=== PATIENT | male | born 1970 | race Caucasian/White ===

== ENCOUNTER → 2022-12-25 13:00 | Outpatient (CLI) | payer OTHER, SELFPAY ==
[2022-12-25 13:39] LABS: Add Manual Diff / Slide Review NO; Basophils Absolute Auto 100 /uL (0-100); Basophils Percent Auto 0.8 % (0-2); Eosinophils Absolute Auto 300 /uL (0-450); Eosinophils Percent Auto 4.4 % (2-4); Hematocrit 45.7 % (41-53); Hemoglobin 16.1 g/dL (13.5-17.5); Lymphocytes Absolute Auto 1900 /uL (1100-4500); Mean Corpuscular HGB Conc 35.3 % (30-36); Mean Corpuscular Hemoglobin 35.7 PG (26-34); Mean Corpuscular Volume 101.3 fL (80-100); Monocytes Absolute Auto 700 /uL (0-900); Monocytes Percent Auto 10.5 % (3-14); Neutrophils Absolute Auto 3800 /uL (1500-7000); Neutrophils Percent Auto 56.3 % (50-75); Platelet Count 226 X10^3/uL (150-400); Red Blood Cell Count 4.51 X10^6/uL (4.5-5.9); Red Cell Distribution Width 12.5 % (11.6-14.8); White Blood Cell Count 6.8 X10^3/uL (4.5-11.0)
[2022-12-25 13:49] LABS: Appearance Urine UA CLEAR; Bilirubin Urine UA NEGATIVE (NEGATIVE); Color Urine UA YELLOW; Glucose Urine UA NEGATIVE (Negative); Ketones Urine UA NEGATIVE (NEGATIVE); Leukocyte Esterase Urine UA NEGATIVE (NEGATIVE); Nitrite Urine UA NEGATIVE (Negative); Occult Blood Urine UA NEGATIVE (Negative); Protein Urine UA TRACE (Negative); Specific Gravity Urine UA 1.025 (1.000-1.035); Urobilinogen Urine UA 0.2 E.U./dL (0.2)
[2022-12-25 13:58] LABS: BUN Creatinine Ratio 14.3 (6-22); Blood Urea Nitrogen 8 mg/dL (9-20); Calcium 9.3 mg/dL (8.4-10.2); Carbon Dioxide 26 mmol/L (22-32); Chloride 99 mmol/L (98-107); Estimated Glomerular Filt Rate > 60 mL/min (>60); Glucose 100 mg/dL (70-100); HEMOLYSIS 16 (0-50); Potassium 3.6 mmol/L (3.4-5.1); Sodium 135 mmol/L (137-145)
[2022-12-26 08:35] LABS: Labcorp Hemoglobin (Hb) A1c 5.4 % (4.8-5.6)
== END ==
PROVIDERS: PCP Nurse Practitioner; Referring Provider Orthopaedic Surgery; Visit Provider Orthopaedic Surgery
DX: Z01.818 Encounter for other preprocedural examination (principal); Z01.812 Encounter for preprocedural laboratory examination; R73.9 Hyperglycemia, unspecified; N39.0 Urinary tract infection, site not specified
CPT/HCPCS: 36415; 80048; 81001; 83036; 85025; 93005

== ENCOUNTER 2023-02-06 06:29 | Inpatient (IN) | payer OTHER, SELFPAY ==
[2023-01-30 13:46] VITALS: BMI 26.2
[2023-02-06] VITALS (11 sets, daily range): BP systolic 110–149; BP diastolic 78–105; PULSE 72–98; RESP 11–18; TEMP 36.1–37.4; O2SAT 97–100; BMI 24.7
--- NOTE | 2023-02-06 | DI.RAD.S_ITS ---
PROCEDURE: XR HIP W PEL IF DONE LT 2V INDICATIONS: POST OP TECHNIQUE: AP pelvis and lateral view of the left hip acquired. COMPARISON: None. FINDINGS: Bones: Patient is status post left total hip arthroplasty, with hardware components in expected positions. The hip joint appears congruent. The visualized bony structures appear intact. Soft tissues: Overlying postoperative changes are noted. No suspicious soft tissue densities. IMPRESSION: Postop changes from left total hip arthroplasty with anatomic alignment. Dictated by: Dangelo Guillory M.D. on 02/06/2023 at 13:32 Approved by: Dangelo Guillory M.D. on 02/06/2023 at 13:32
--- NOTE | 2023-02-06 06:00 | DI.RAD.S_ITS ---
PROCEDURE: XR PELVIS 1-2V INDICATIONS: ISIDORO TECHNIQUE: 1 view(s) of the pelvis acquired. COMPARISON: None. FINDINGS: Bones: Left hip arthroplasty changes. Soft tissues: No suspicious calcifications. IMPRESSION: Single radiographic view showing the left hip arthroplasty with postoperative changes. Dictated by: Jono Gupta M.D. on 02/06/2023 at 11:59 Approved by: Jono Gupta M.D. on 02/06/2023 at 12:00
[2023-02-06] MEDS: VANCOMYCIN 1,000 MG/200 ML PIGGYBACK 200 MG IV (06:56)
[2023-02-06] MEDS: LACTATED RINGERS 1,000 ML 42 ML IV (07:02)
[2023-02-06] MEDS: PREGABALIN 75 MG CAPSULE PO (07:02)
[2023-02-06] MEDS: CELECOXIB 200 MG CAPSULE PO (07:02)
[2023-02-06] MEDS: ACETAMINOPHEN 325 MG TABLET 975 MG PO (07:02)
--- NOTE | 2023-02-06 07:34 | P.OP_ITS ---
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 He has a remote history of surgical fixation with screws for slipped capital femoral epiphysis when he was child. He notes that his hip is markedly worsened recently. Non-operative management has failed and the patient has requested total hip replacement. The risks, benefits and alternatives to surgery were discussed with the patient prior to proceeding. Risks discussed included, but were not limited to, failure to relieve pain, leg length discrepancy, dislocation, stiffness, infection, nerve damage, deep venous thrombosis, pulmonary embolism, stroke, coma, heart attack, permanent paralysis and , as well as the potential need for eventual revision of the prosthetic. Surgeon: Nguyen Trevizo Ip Litigation Associate: Morteza Enriquez Anesthesia Type: General Operative Notes Findings: Severe left hip osteoarthritis adequate stability, adequate bone Closure Type: primary Specimen(s): none sent Prosthetic devices, grafts, tissues, transplants, or devices: Trevizo and nephew Synergy size 16 high offset, neutral poly liner, multiple screws locking and some nonlocking, size 60 redapt cup, 36+ 0 Oxinium head Estimated Blood Loss (mL): 600 Blood products transfused: none Procedure in detail: The patient was seen in the pre-operative area, where the patient identified the left hip as the operative site and this was marked with my initials. The patient received pre-operative antibiotics and was taken to the operating room and placed on the operative table in the right lateral decubitus position after satisfactory anesthesia. He had a hip flexion contracture of about 32 gave degrees preoperatively and several cm of leg length discrepancy and shortening with a slight abductor rosenberg contracture. A clerical support specialist out was performed. The left leg was prepared from the ankle to the iliac crest with ChloroPrep in the usual fashion and draped through sterile drapes. A PA was used throughout the procedure and was essential for retraction and adequate positioning of the patient and leg in order to allow successful implantation of the components. The hip was approached through an approximately 24 cm incision centered over the greater trochanter and curving gently posteriorly as it went proximally. This was carried sharply to the fascia caron, which was divided and retracted with a self retaining retractor. The trochanteric bursa was excised with care being taken to avoid the sciatic nerve, which was identified and protected throughout the case. The short external rotators were incised and the capsulomuscular flap was raised and tagged for later repair. The hip was dislocated. He had marked deformity of his femoral head. The screws were not visible but there was marked osteoarthritis and significant subchondral changes in the femoral head as well as coxa vara and coxa magna. We next worked to mobilize and remove the screws. A partial femoral neck osteotomy performed approximately 15 mm above the lesser trochanter. Bone was resected from around the femoral head. The screws were exposed. Attention was then directed laterally none of the screws were at all visible or palpable on the lateral cortex her anterior neck. The screws were noted to be cannulated. It was felt that it would be helpful to place a pin through the screw retrograde and out the cortex in order to allow localization of the screws which were clearly buried beneath the lateral cortex. The most posterior screw was identified. We then meticulously dissected around the screw head. A combination of a bur multiple osteotomes curette and the tree fine in order to adequately expose the head of the screw. Multiple different screwdrivers were checked. Screw was noted to be a titanium screw with a very large head. We fou nd the correct screwdriver and then tried to retrograde advanced it. It was clearly still too strong stuck try went back to the femoral head stripped all the bone off of the screw and then backed screw out the lateral by advancing it down the femoral neck. The remaining 2 screws were more difficult to find. K- wires were advanced down through the screw and then ultimately we passed a wire through the screw. This then allowed us to identify and find the screw head. All the bone that had to be chipped off of the screw head and then with reverse out using a combination of an osteotome and a Joey to put back pressure on the screw head. Finally the 3rd screw was identified and removed with a similar technique. Saw was then used to finish the osteotomy on the femoral neck and remove any residual head and neck. There were massive osteophytes around the femoral neck they were carefully removed. Retractors were placed around the femur. The canal was opened with a box cutting osteotome, followed by a T handled reamer and a lateralizing reamer. He was sequentially right reamed up to a size 15. The 1st broach was then used, followed by sequential broaching until there was good stability of the broach in the femur. Retractors were placed to expose the acetabulum. The labrum and central soft tissues were removed. A cup was noted to be markedly abnormal. We meticulously dissected around the rim. It was markedly deformed. Started by centralizing the cup inferiorly in a more anatomic location. Then carefully reamed that up being careful to not wash out anterior and posterior rim as it was a markedly elliptical acetabulum with fairly large defect. Reaming was performed initially going up in 2 mm increments, then 1 mm increments until good bite was obtained with an odd sized reamer. The cup 1 mm larger than the last reamer was then inserted using the appropriate anteversion guides. It was initially stabilized with 2 screws. A trial neutral liner was placed. The broach was placed in the canal. A trial head and neck were then placed and the hip relocated and checked for leg length and stability. An intraoperative film confirmed the component position and no evidence of fracture. The patient was stable in the position of sleep, of squatting, and could be put through a range of motion with 45 degrees internal rotation without dislocation. At 90 degrees flexion, internal rotation to 70? was possible before dislocation. This was felt to be satisfactory and the appropriate components were opened, and the trials were removed. The stem felt like we should go up 1 additional size. Was broached for that. A trial neutral liner was removed and additional locking screws were placed. Additional bone bone was also packed into a portion of the superior acetabular defect. The acetabular liner was impacted into position. The final stem was then impacted into the prepared femoral canal. A brief Betadine soak was performed while trialing with head options. The hip was meticulously irrigated with normal saline. Finally the femoral head was impacted onto the stem. The acetabulum was cleared of all material and the hip relocated one final time. The capsulomuscular flap was then repaired to the greater trochanter though an awl hole using the tag sutures. The short external rotators were repaired with a nonabsorbable suture. The anterior exposure used for screw removal was meticulously closed. The fascia caron was closed with Vicryl. The subcutaneous layer was closed with barbed sutures and skin selma. An Aquacel Ag dressing was applied and the patient was taken to recovery having tolerated the procedure well. Complications: none Post-operative Condition: stable Disposition: Acute Care Plan for aftercare: The patient will be maintained on a standard total hip replacement protocol with weight bearing as tolerated and posterior hip precautions. The patient will receive Aspirin and sequential compression devices for DVT prophylaxis. The patient will be discharged home when safe for the home environment.
--- NOTE | 2023-02-06 07:41 | PM.PREOP ---
Pre-operative Note Interval Note History & Physical reviewed/Exam performed by Physician: Yes Changes to H&P: No
[2023-02-06] MEDS: CEFAZOLIN 2 GM/100 ML PREMIX 100 ML IV ×3 (07:57→23:41)
--- NOTE | 2023-02-06 08:24 | SUR.OPER ---
Lateral on padded OR bed. Gel axillary roll. Arms secured on padded armboard with two pillows supporting top arm. Padded hip positioner braces x4 - anterior and posterior chest and pelvis. Additional gel pad used anterior pelvis. Gel pad under bottom leg from knee to foot and secured with tape over sheet.
[2023-02-06] MEDS: BUPIVACAINE 0.25% (PF) 60 ML, EPINEPHrine 0.3 MG INJ (08:33)
[2023-02-06] MEDS: BUPIVACAINE LIPOSOME 266 MG/20 ML VIAL INJ (08:33)
[2023-02-06] MEDS: EPINEPHrine 1 MG/ML TOP (08:37)
[2023-02-06] MEDS: IBUPROFEN 400 MG TABLET PO ×3 (13:12→21:11)
[2023-02-06] MEDS: ACETAMINOPHEN 325 MG TABLET 650 MG PO ×2 (13:13→18:11)
[2023-02-06] MEDS: LACTATED RINGERS 1,000 ML 100 ML IV (13:19)
--- NOTE | 2023-02-06 13:30 | PT.IIE ---
Current Diagnoses Other unilateral secondary osteoarthritis of hip (02/06/23) Surgery Performed Operation Date: 02/06/23 07:45 Actual Procedures p Total Hip Arthroplasty, posterior, removal internal fixation hip(Left) - Nguyen Trevizo MD Surgical History (Last Updated 01/30/23 @ 13:54 by Angelina Calzada, RN) History of orthopedic surgery History of orthopedic surgery History of orthopedic surgery (2017) Medical History (Last Updated 01/30/23 @ 14:21 by Angelina Calzada RN) Anxiety High blood pressure History of COVID-19 (~02/2020) Osteoarthritis Scoliosis Physical Therapy Inpatient Evaluation/Re-Eval M1 PT/OT-IP Prior Functional Status Start: 02/06/23 14:54 Freq: NEEDED Status: Active Protocol: Document 02/06/23 13:30 AB (Rec: 02/06/23 15:11 AB [id number]) Medical Review Prior Functional Status Medical History Reviewed Yes Communication able to make needs known Mobility and Gait pt stated that he is independent with all mobilities and ambulation without AD but has been using a 4WW occasionally for the past 3 weeks Social History Household Members significant other Living Arrangements House Number of Floors (Floors) One Floor Number of Stairs To Enter/Railing? 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 pt's daughter can also assist pt if needed M2 PT-IP Current Condition Start: 02/06/23 14:54 Freq: NEEDED Status: Active Protocol: Document 02/06/23 13:30 AB (Rec: 02/06/23 15:11 AB [id number]) Physical Therapy Current Condition Current Condition Evaluation Date 02/06/23 Treatment Diagnosis s/p L ISIDORO posterior approach; difficulty in walking Onset Date 02/06/23 M3 PT-IP Subjective Start: 02/06/23 14:54 Freq: NEEDED Status: Active Protocol: Document 02/06/23 13:30 AB (Rec: 02/06/23 15:11 AB [id number]) Subjective Physical Therapy Visit Type Type Initial Evaluation Visit Start Time 13:30 Visit Stop Time 14:35 Total Visit Minutes 65 Number of REQUIREMENTS MANAGER Visits 0 Physical Therapy Visit Comments Patient Comments agreeable to do PT Therapy Pain Assessment Pain When Pain Assessed At Rest Pain Present Pain Present Pain Reported Location Left Hip Intensity 4 Scale Used Numeric (0 - 10) Pain Management Techniques Apply Cold,Modification of Treatment,Re-positioning, Timing of Activity with Medications M4 PT-IP Mobility and Gait Start: 02/06/23 14:54 Freq: NEEDED Status: Active Protocol: Document 02/06/23 13:30 AB (Rec: 02/06/23 15:11 AB [id number]) PT-Bed Mobility Assessment Supine to Sit Supine to Sit Standby Assistance PT-Transfer Assessment Sit to and From Stand Sit to and from Stand Contact Guard Assistance, Moderate Assistance,1 Person Assistance,Use of Upper Extremities Equipment Transfer Assistive Device Gait Belt,Front Wheeled Walker Orthotic/Prosthetic Devices or Brace: No Transfers Transfer Destination Chair Transfer Technique Stand Step Pivot Transfer Ability Level of Assist Minimal Assistance,1 Person Assistance,Use of Upper Extremities Comments Mobility Comments pt supine in bed. Pt's significant other in room with pt as well as his daughter. educated pt and family regarding pt's posterior hip precautions. BP: 134/86 pt completed supine to sit SBA and cues for techniques. pt able to sit on EOB SBA. completed sit to stand mod A and cues. pt is tremulous. instructed to sit back down and cued to have LLE forward for hip precaution. educated pt on sit<> stand techniques again. completed sit to stand CGA and ambulated in room ~ 10 ft using FWW mod A. presents with unsteady gait and pt has slight difficulty moving LLE. pt stated that it feels strange. pt sat back on EOB. agreed to get up again to sit on the chair. completed sit to stand CGA and step transfer to chair min A. positioned pt on the chair. ice pack provided. call light and table placed within reach. pt wanting to go home today but pt still has decrease LLE motor control and is unsteady during standing/ambulation. pt 's significant other agreed and stated that she wants pt to be more stable before going home. caregiver training set up tomorrow at 1030am. Gait Assessment Gait Gait Assistance Required: Moderate Assistance,1 Person Assist Distance (Feet) 10 Able to Maintain Weight Bearing Status Yes During Gait Assistive Devices Assistive Device Gait Belt,Front Wheeled Walker Orthotic/Prosthetic Devices or Brace: No Gait Deviations General Gait Pattern Antalgic,Decreased Stride Length,Decreased Feet Clearance,Step-to Gait Factors Limiting Gait Function Factors Limiting Gait Function Decreased Activity Tolerance, Decreased Strength,Difficulty Following Directions,Limited Range of Motion,Pain,Poor Balance,Poor Safety Awareness PT-Balance Assessment Sitting Balance and Reactions Static Sitting Balance Ability Normal Dynamic Sitting Balance Ability Good Standing Balance and Reactions Static Standing Balance Ability Fair Dynamic Standing Balance Ability Poor Device Used FWW M5 PT-IP Objective Assessments Start: 02/06/23 14:54 Freq: NEEDED Status: Active Protocol: Document 02/06/23 13:30 AB (Rec: 02/06/23 15:11 AB [id number]) Orientation Orientation/Cognition Level of Alertness Alert Orientation Name,Place,Situation Language Function Ability No Deficits Noted Safety Awareness Decreased Safety Awareness Memory Description No Deficits Noted Gross Range of Motion Lower Extremity ROM Assessment Within Functional Limits Strength Lower Extremity Strength Assessment Left Impaired Hip 3+/5 Knee 4-/5 Sensation Assessment Sensation Gross Sensation WNL Muscle Tone Muscle Tone WNL Yes M6 PT-IP Treatment Start: 02/06/23 14:54 Freq: NEEDED Status: Active Protocol: Document 02/06/23 13:30 AB (Rec: 02/06/23 15:11 AB [id number]) Physical Therapy Treatment Education Education Provided Precautions,Weight Bearing Status,Post-Op Packet,Safety M7 PT-IP Assessment and Plan Start: 02/06/23 14:54 Freq: NEEDED Status: Active Protocol: Document 02/06/23 13:30 AB (Rec: 02/06/23 15:11 AB [id number]) PT Summary Assessment and Plan Potential Rehabilitation Potential Fair Status of Condition at Evaluation Evolving Summary Impairments Pain,ROM,Strength,Balance, Coordination,Sensation,Tone, Cognition,Bed Mobility, Transfers,Gait,Activity Tolerance Assessment Summary pt s/p L ISIDORO posterior approach with posterior hip precautions and is WBAT POD 0. pt has sensation back on LLE but has difficulty with moving LLE and was tremulous during activity affecting mobility. Pt requiring min to mod A with mobility using FWW. caregiver training set up for tomorrow at 1030 am. will continue to assess progress. Goals Bed Mobility Goal Independent Transfer Goal Independent,Front Wheeled Walker Gait Goal Independent,Front Wheel Walker Gait Distance 200 Other Goals up/dpwn 2 steps 2 rails SBA Days to Meet Goals 5 Frequency of Treatment Frequency Of Treatment Twice a Day Treatment Plan Physical Therapy Treatment Plan Bed Mobility Training,Transfer Training,Gait Training, Therapeutic Exercise,Balance Retraining,Post Op Education, Discharge Planning,Hot or Cold Pack,Neuromuscular Re-ed, Coordination Retraining,Manual Therapy Other Recommendations and Next Treatment Caregiver traiin/28 @ Focus 1030am Precautions Posterior Hip Precautions No Hip Flexion > 90 degrees,No Hip Internal Rotation,No Hip Adduction Weight Bearing Status Weight Bearing Status Weight Bear as Tolerated Allowed Weight Bearing Amount (enter % LLE WBAT or #) (%) Recommendations To Nursing Amount of Assist Needed 1 Person Assist Discharge Recommendations PT Discharge Recommendations Home with Assistance, Outpatient PT Transportation Needs at Discharge Private Vehicle
--- NOTE | 2023-02-06 16:27 | OT.IP.EVAL ---
Current Diagnoses Other unilateral secondary osteoarthritis of hip (02/06/23) Surgery Performed Operation Date: 02/06/23 07:45 Actual Procedures p Total Hip Arthroplasty, posterior, removal internal fixation hip(Left) - Nguyen Trevizo MD Past Medical History (Last Updated 01/30/23 @ 14:21 by Angelina Calzada, RN) Anxiety High blood pressure History of COVID-19 (~02/2020) Osteoarthritis Scoliosis Surgical History (Last Updated 01/30/23 @ 13:54 by Angelina Calzada RN) History of orthopedic surgery History of orthopedic surgery History of orthopedic surgery (2017) Occupational Therapy Inpatient Evaluation/Re-Eval M1 PT/OT-IP Prior Functional Status Start: 02/06/23 16:24 Freq: NEEDED Status: Active Protocol: Document 02/06/23 16:00 [facility] (Rec: 02/06/23 17:14 [facility] [id number]) Medical Review Prior Functional Status Medical History Reviewed Yes Communication able to make needs known Mobility and Gait pt stated that he is independent with all mobilities and ambulation without AD but has been using a 4WW occasionally for the past 3 weeks Activities of Daily Living and IADL's Pt needing assist with shoes and socks at times and having to using LB dressing equipment . Social History Household Members significant other Living Arrangements House Number of Floors (Floors) One Floor Number of Stairs To Enter/Railing? 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 frame pt's daughter can also assist pt if needed M2 OT-IP Current Condition Start: 02/06/23 16:24 Freq: Status: Active Protocol: Document 02/06/23 16:00 [facility] (Rec: 02/06/23 17:14 [facility] [id number]) Occupational Therapy Current Condition Current Condition Evaluation Date 02/06/23 Treatment Diagnosis S/p L ISIDORO Diagnosis Onset Date 02/06/23 Post Operative Precautions Posterior Hip Precautions No Hip Flexion > 90 degrees,No Hip Internal Rotation,No Hip Adduction M3 OT- IP Subjective and Pain Start: 02/06/23 16:24 Freq: Status: Active Protocol: Document 02/06/23 16:00 [facility] (Rec: 02/06/23 17:14 [facility] [id number]) OT- Subjective Occupational Therapy Visit Type Type Initial Evaluation Visit Start Time 16:00 Visit Stop Time 16:27 Total Visit Minutes 27 Occupational Therapy Visit Comments Patient Comments Pt agreed to get up and wanting to use the bathroom. Patient/Caregiver Goals To go home. OT Pain Assessment Pain When Pain Assessed At Rest Pain Present Pain Present Pain Reported Location Left Hip Intensity 2 Scale Used Numeric (0 - 10) M4 OT- IP ADL's Start: 02/06/23 16:24 Freq: Status: Active Protocol: Document 02/06/23 16:00 [facility] (Rec: 02/06/23 17:14 [facility] [id number]) OT [id number]-[place] General Evaluation Self-Feeding Ability Independent OT ADL-Grooming Comments OT Grooming Comments Not performed. OT ADL-Oral Care Comments Oral Care Comments Not performed. OT ADL-Dressing General Eval Lower Body Dressing Ability Standby Assistance,Maximum Assistance Comments OT Dressing Comments Pt able to practice use of medical appliance maker to don his underwear. Educated pt to milena his LLE first and take it out last during LB dressing needs. OT ADL-Toileting General Evaluation Toileting Ability Standby Assistance Comments OT Toileting Comments Pt able to stand wit FWW in front of him to urinate into the urinal. OT ADL-Bathing Comments OT Bathing Comments Pt states to get a shower chair. M5 OT- IP IADL's Start: 02/06/23 16:24 Freq: Status: Active Protocol: Document 02/06/23 16:00 [facility] (Rec: 02/06/23 17:14 [facility] [id number]) OT-Instrumental Activities of Daily Living Deficits IADL Deficits Identified Deficits Home Safety Awareness Awareness of Need for Assistance at Home Good Awareness Ability to Problem Solve Emergency Able to Problem Solve Situations M6 OT- IP Functional Cognition Start: 02/06/23 16:24 Freq: Status: Active Protocol: Document 02/06/23 16:00 [facility] (Rec: 02/06/23 17:14 [facility] [id number]) Cognitive Factors Limiting Selfcare Function Cognitive Ability Level of Alertness Alert Patient Orientation Name,Age,Birthday,Month,Date, Year,Day of Week,Place, Situation Attention Span Ability Capable of Focused Attention, Capable of Sustained Attention Ability to Follow Commands Able to Follow Multi-Step Commands Memory Description No Deficits Noted Safety Awareness No Deficits Noted Cognitive Comments Cognitive Assessment Comments Pt intact and able to follow his hip precautions well for ADl and mobility needs. OT- Vision and Hearing OT- Hearing Assessment OT- Hearing Assessment WFL OT- Vision Assessment Visual Acuity Glasses For Reading M7 OT- IP Mobility and Balance Start: 02/06/23 16:24 Freq: Status: Active Protocol: Document 02/06/23 16:00 [facility] (Rec: 02/06/23 17:14 [facility] [id number]) OT-Transfer Assessment Sit to and From Stand Sit to and from Stand Standby Assistance Transfers Transfer Ability Standby Assistance,Contact Guard Assistance Technique Transfer Destination Chair Transfer Technique Stand Step Pivot Devices Transfer Assistive Devices Gait Belt,Front Wheeled Walker Comments Mobility Comments SBA to stand and from CGA to close SBA with FWW to get to and from the recliner to bathroom. OT- Balance Assessment Sitting Balance and Reactions Static Sitting Balance Ability Normal Dynamic Sitting Balance Ability Good Standing Balance and Reactions Static Standing Balance Ability Good Dynamic Standing Balance Ability Fair M9 OT- IP Assessment and Plan Start: 02/06/23 16:24 Freq: Status: Active Protocol: Document 02/06/23 16:00 [facility] (Rec: 02/06/23 17:14 [facility] [id number]) OT Summary Assessment and Plan Potential Rehabilitation Potential Excellent Analytic Complexity at Evaluation Low Summary OT Impairments Pain,Balance,Functional Mobility,Dressing,Toileting, Bathing,Toilet Transfers, Shower Transfers Progress Towards Goals Progressing Toward Goals Assessment Summary Pt low complexity and doing well so far and able to follow his hip precautions for ADl and mobility needs. Pt will benefit from use of the shower chair at home. Pt looking to go home with assist tomorrow. Goals Dressing Goal Independent Toileting Goal Independent Bathing Goal Independent Toilet Transfer Goal Independent Shower Transfer Goal Independent Days to Meet Goals 5 Frequency of Treatment Frequency Of Treatment Once a Day Treatment Plan OT Treatment Plan ADL Training,Functional Mobility,Patient/Family Education,Discharge Planning Other Treatment Recommendations and Next shower Treatment Focus Discharge Recommendations OT Discharge Recommendations Home with Assistance, Outpatient PT Home Equipment Needs shower chair Transportation Needs at Discharge Private Vehicle
--- NOTE | 2023-02-06 18:32 | PC.NURSE ---
Pt to room 205 at approx. 1240. Pt is alert and oriented, denies pain, numbness, or tingling. No nausea or shortness of breath. Oriented to room, call light, bed controls, and tv controls. IV infusing as ordered. SCD's on and running. Bed alarm on for safety. Pt agreed to call for assistance as needed and to not get up without assistance.
[2023-02-06] MEDS: ASPIRIN EC 81 MG TABLET PO (21:11)
[2023-02-06] MEDS: DOCUSATE 100 MG CAPSULE PO (21:11)
--- NOTE | 2023-02-06 21:28 | PC.NURSE ---
Patient is alert and oriented. Breath sounds CTA with RA sat of 100%; declines use of continuous oximetry. HRR. Denies nausea. BT present and is passing flatus. Using urinal to void and denies dysuria, frequency or urgency. Is able to move himself in bed/chair. Up in room with SBA + walker. CMS is intact although ROM limited in left LE. CT dressing intact and functioning; 25% saturated at distal end with dark red drainage. Denies pain but is using ice packs to lateral hip. Is currently sitting up in chair and ankle waving but agreeable to having bilateral calf SCD's placed when he goes back to bed. Significant other rooming in. Fall risk score is moderate but calls for assistance appropriately and verbalizes understanding not to get up on his own.
[2023-02-07 00:33] VITALS: BP 126/70; PULSE 75; RESP 18; TEMP 36.9; O2SAT 97
[2023-02-07] MEDS: ACETAMINOPHEN 325 MG TABLET 650 MG PO ×2 (00:34→06:37)
[2023-02-07] MEDS: IBUPROFEN 400 MG TABLET PO ×3 (00:34→07:59)
[2023-02-07 05:52] LABS: Hematocrit 32.4 % (41-53); Hemoglobin 11.7 g/dL (13.5-17.5)
--- NOTE | 2023-02-07 07:41 | PM.DS.1 ---
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 He has a remote history of surgical fixation with screws for slipped capital femoral epiphysis when he was child.? He notes that his hip is markedly worsened recently.? Non-operative management has failed and the patient has requested total hip replacement. The risks, benefits and alternatives to surgery were discussed with the patient prior to proceeding. Risks discussed included, but were not limited to, failure to relieve pain, leg length discrepancy, dislocation, stiffness, infection, nerve damage, deep venous thrombosis, pulmonary embolism, stroke, coma, heart attack, permanent paralysis and , as well as the potential need for eventual revision of the prosthetic. Surgeon: Nguyen Trevizo Tractor Engine Assembler: Morteza Enriuqez Anesthesia Type: General Operative Notes Findings: Severe left hip osteoarthritis adequate stability, adequate bone Closure Type: primary Specimen(s): none sent Prosthetic devices, grafts, tissues, transplants, or devices: Trevizo and nephew Synergy size 16 high offset, neutral poly liner, multiple screws locking and some nonlocking, size 60 redapt cup, 36+ 0 Oxinium head Estimated Blood Loss (mL): 600 Blood products transfused: none Discharge Providers Provider Date of admission: 02/06/23 06:29 Discharge Date: 02/07/23 Primary care physician: MISHA Ramírez Consults: 02/06/23 06:00 Consult to Anesthesiology Routine Comment: Consulting Provider: Anesthesiologist Reason for consultation: Regional block for post operative pain control 02/06/23 12:53 Consult to Discharge Planning Routine Comment: Consult to Occupational Therapy Evaluate & Treat Comment: Physician Instructions: Evaluate and treat Consult to Physical Therapy Evaluate & Treat Comment: Physician Instructions: post op ISIDORO protocol Discharge provider: Camryn Nunez PA-C Summary Hospital Course Discharge Diagnosis: 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 On the morning of POD# 1, he was feeling well and wanted to go home. He was eating and voiding without difficulty and his pain was well-controlled with oral medication. He was evaluated by PT and felt to be safe for discharge. Exam Vital Signs (past 8 hours): - 02/07/23 00:33 Temperature 98.5 F Pulse Rate 75 Respiratory Rate 18 Blood Pressure 126/70 Pulse Oximetry 97 Oxygen Flow Rate 0 Oxygen Delivery Method Room Air Oxygen Flow Rate 0 Narrative Exam Narrative: 5/5 strength in hip flexors, quadriceps, hamstrings, DF, PF, EHL on left. Sensation to light touch intact throughout LLE. Calf soft, compressible, nontender and without palpable cords or masses. CT dressing functioning, about 80% saturated. Dressing removed; there was an area of bloody drainage at the distal portion of the incision. This area was stapled and a new CT was placed and activated. 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 Discharge Plan Discharge Plan Patient Disposition: Home Discharge orders & Medications Prescriptions: Continued ibuprofen 200 mg Tablet 400 mg PO Q6H PRN (Reason: Pain) Medication counseling provided by Pharmacist: Yes Follow up/Referrals: Jocelynn Stinson ARNP [Primary Care Provider] - Nguyen Trevizo MD [Physician] - As previously scheduled (Follow up w/ Dr Trevizo on 02/21/2023 @ 2:[address] office in [place].) Diet/Activity/Treatments Diet: Diet as Tolerated Activity: WBAT to left leg. Posterior hip precautions. Cold/Heat Therapy: Ice to hip as needed for pain. Skin/Wound/Dressing Care Report to your healthcare provider any signs of infection, such as:: chills, fever, night sweats, unusual drainage and unusual redness Dressing: May shower. Leave dressing in place until follow up in office. When batteries in 5-7 days, may remove and dispose of battery pack. No bathing or otherwise soaking incision. Call the office if the dressing becomes saturated inside. Visit Report/Discharge Packet Instructions: DI for Hip Replacement, DI for Prescription Opioid Use Stand Alone Forms: Patient Portal/API, Stroke Signs & Symptoms, Surgery Discharge Discharge Data Primary Care Provider: Jocelynn Stinson Discharges patient from system. Discharge Date/Time: 02/07/23 11:11 Quality VTE Deep Vein Thrombosis/Pulmonary Embolism Present on Admission: No
[2023-02-07] MEDS: DOCUSATE 100 MG CAPSULE PO (07:59)
[2023-02-07] MEDS: ASPIRIN EC 81 MG TABLET PO (07:59)
[2023-02-07] MEDS: SODIUM CHLORIDE 0.9% FLUSH 10 ML IV (08:00)
[2023-02-07 08:50] VITALS: BP 124/84; PULSE 77; RESP 18; TEMP 36.8; O2SAT 100
--- NOTE | 2023-02-07 09:41 | OT.IP.TRT ---
Current Diagnoses Other unilateral secondary osteoarthritis of hip (02/06/23) Surgery Performed Operation Date: 02/06/23 07:45 Actual Procedures p Total Hip Arthroplasty, posterior, removal internal fixation hip(Left) - Nguyen Trevizo MD Occupational Therapy Treatment Note M2 OT-IP Current Condition Start: 02/06/23 16:24 Freq: Status: Active Protocol: Document 02/06/23 16:00 [facility] (Rec: 02/06/23 17:14 [facility] [id number]) Occupational Therapy Current Condition Current Condition Evaluation Date 02/06/23 Treatment Diagnosis S/p L ISIDORO Diagnosis Onset Date 02/06/23 Post Operative Precautions Posterior Hip Precautions No Hip Flexion > 90 degrees,No Hip Internal Rotation,No Hip Adduction M3 OT- IP Subjective and Pain Start: 02/06/23 16:24 Freq: Status: Active Protocol: Document 02/07/23 09:32 [facility] (Rec: 02/07/23 10:23 [facility] [id number]) OT- Subjective Occupational Therapy Visit Type Type Treatment Note Visit Start Time 09:32 Visit Stop Time 09:41 Total Visit Minutes 9 Occupational Therapy Visit Comments Patient Comments Pt not wanting to shower but agreed to get dressed. Patient/Caregiver Goals TO go home OT Pain Assessment Pain When Pain Assessed At Rest Pain Present Pain Present Pain Reported Location Left Thigh Intensity 2 Scale Used Numeric (0 - 10) M4 OT- IP ADL's Start: 02/06/23 16:24 Freq: Status: Active Protocol: Document 02/07/23 09:32 [facility] (Rec: 02/07/23 10:23 [facility] [id number]) OT ADL-Dressing General Eval Upper Body Dressing Ability Independent Lower Body Dressing Ability Minimal Assistance Comments OT Dressing Comments Pt well aware not to reach and bend over for LB dressing needs and therefore to use a edge trimmer mechanic and needed assist to get pants over his LLE. M5 OT- IP IADL's Start: 02/06/23 16:24 Freq: Status: Active Protocol: Document 02/06/23 16:00 [facility] (Rec: 02/06/23 17:14 [facility] [id number]) OT-Instrumental Activities of Daily Living Deficits IADL Deficits Identified Deficits Home Safety Awareness Awareness of Need for Assistance at Home Good Awareness Ability to Problem Solve Emergency Able to Problem Solve Situations M6 OT- IP Functional Cognition Start: 02/06/23 16:24 Freq: Status: Active Protocol: Document 02/07/23 09:32 [facility] (Rec: 02/07/23 10:23 [facility] [id number]) Cognitive Factors Limiting Selfcare Function Cognitive Comments Cognitive Assessment Comments Intact M7 OT- IP Mobility and Balance Start: 02/06/23 16:24 Freq: Status: Active Protocol: Document 02/07/23 09:32 [facility] (Rec: 02/07/23 10:23 [facility] [id number]) OT-Transfer Assessment Sit to and From Stand Sit to and from Stand Independent OT- Balance Assessment Sitting Balance and Reactions Static Sitting Balance Ability Normal Dynamic Sitting Balance Ability Good Standing Balance and Reactions Static Standing Balance Ability Good Dynamic Standing Balance Ability Good M9 OT- IP Assessment and Plan Start: 02/06/23 16:24 Freq: Status: Active Protocol: Document 02/07/23 09:32 [facility] (Rec: 02/07/23 10:23 [facility] [id number]) OT Summary Assessment and Plan Potential Rehabilitation Potential Excellent Analytic Complexity at Evaluation Low Summary OT Impairments Pain,Balance,Functional Mobility,Dressing,Toileting, Bathing,Toilet Transfers, Shower Transfers Progress Towards Goals Progressing Toward Goals Assessment Summary Pt doing well and not wanting to shower prior to going home but agreed to get dressed. Pt able to incorporate his hip precautions with good safety for getting dressed and mobility needs. Pt looking to go home today and has good family support. Goals Dressing Goal Independent Toileting Goal Independent Bathing Goal Independent Toilet Transfer Goal Independent Shower Transfer Goal Independent Days to Meet Goals 3 Frequency of Treatment Frequency Of Treatment Once a Day Treatment Plan OT Treatment Plan ADL Training,Functional Mobility,Patient/Family Education,Discharge Planning Discharge Recommendations OT Discharge Recommendations Home with Assistance, Outpatient PT Home Equipment Needs shower chair Transportation Needs at Discharge Private Vehicle
--- NOTE | 2023-02-07 10:50 | PT.IPTN ---
Current Diagnoses Other unilateral secondary osteoarthritis of hip (02/06/23) Surgery Performed Operation Date: 02/06/23 07:45 Actual Procedures p Total Hip Arthroplasty, posterior, removal internal fixation hip(Left) - Nguyen Trevizo MD Physical Therapy Treatment Note M2 PT-IP Current Condition Start: 02/06/23 14:54 Freq: NEEDED Status: Discharge Protocol: Document 02/06/23 13:30 AB (Rec: 02/06/23 15:11 AB [id number]) Physical Therapy Current Condition Current Condition Evaluation Date 02/06/23 Treatment Diagnosis s/p L ISIDORO posterior approach; difficulty in walking Onset Date 02/06/23 M3 PT-IP Subjective Start: 02/06/23 14:54 Freq: NEEDED Status: Discharge Protocol: Document 02/07/23 11:04 TS (Rec: 02/07/23 11:13 TS [id number]) Subjective Physical Therapy Visit Type Type Treatment Note Visit Start Time 10:50 Visit Stop Time 11:00 Total Visit Minutes 10 Number of SURVEY TECHNOLOGIST Visits 1 Physical Therapy Visit Comments Patient Comments Pt found in chair, agreeable to PT. Therapy Pain Assessment Pain When Pain Assessed During Mobility Pain Present Pain Present Pain Reported M4 PT-IP Mobility and Gait Start: 02/06/23 14:54 Freq: NEEDED Status: Discharge Protocol: Document 02/07/23 11:04 TS (Rec: 02/07/23 11:13 TS [id number]) PT-Transfer Assessment Sit to and From Stand Sit to and from Stand Standby Assistance Equipment Transfer Assistive Device Gait Belt,Front Wheeled Walker Orthotic/Prosthetic Devices or Brace: No Comments Mobility Comments Pt found resting in chair, agreeable to PT. Sit to stand with FWW SBA with Bue support, pt demonstrated good carryover of sequencing with LLE extended. He ambulated ~ 200' with a circling gait on LLE, provided cues for heel to toe, pt continued to with circling gait on LLE. He performed stairs x3 with BUE handrail assist, provided cues for sequencing, no buckling or LOB. Pt was left back in room in chair preparing for d/ c, RN notified. Gait Assessment Gait Gait Assistance Required: Standby Assistance,1 Person Assist Distance (Feet) 200 Able to Maintain Weight Bearing Status Yes During Gait Assistive Devices Assistive Device Gait Belt,Front Wheeled Walker Orthotic/Prosthetic Devices or Brace: No Gait Deviations General Gait Pattern Antalgic,Decreased Stride Length,Decreased Feet Clearance,Step-to Gait Factors Limiting Gait Function Factors Limiting Gait Function Decreased Activity Tolerance, Decreased Strength,Limited Range of Motion,Pain,Poor Balance Comments Gait Comments See mobility comments Stair Climbing Assessment Evaluation Level of Assist On Stairs Standby Assistance Devices Stair Climbing Assistive Devices Front Wheel Walker Technique/Endurance Stair Climbing Direction Ascend and Descend Stair Climbing Technique Step to Step Number of Steps Climbed 3 Comments Stair Climbing Comments See mobility comments. PT-Balance Assessment Sitting Balance and Reactions Static Sitting Balance Ability Normal Dynamic Sitting Balance Ability Good Standing Balance and Reactions Static Standing Balance Ability Good Dynamic Standing Balance Ability Good Device Used FWW M5 PT-IP Objective Assessments Start: 02/06/23 14:54 Freq: NEEDED Status: Discharge Protocol: Document 02/06/23 13:30 AB (Rec: 02/06/23 15:11 AB [id number]) Orientation Orientation/Cognition Level of Alertness Alert Orientation Name,Place,Situation Language Function Ability No Deficits Noted Safety Awareness Decreased Safety Awareness Memory Description No Deficits Noted Gross Range of Motion Lower Extremity ROM Assessment Within Functional Limits Strength Lower Extremity Strength Assessment Left Impaired Hip 3+/5 Knee 4-/5 Sensation Assessment Sensation Gross Sensation WNL Muscle Tone Muscle Tone WNL Yes M6 PT-IP Treatment Start: 02/06/23 14:54 Freq: NEEDED Status: Discharge Protocol: Document 02/07/23 11:04 TS (Rec: 02/07/23 11:13 TS [id number]) Physical Therapy Treatment Education Education Provided Precautions,Weight Bearing Status,Post-Op Packet,Safety M7 PT-IP Assessment and Plan Start: 02/06/23 14:54 Freq: NEEDED Status: Discharge Protocol: Document 02/07/23 11:04 TS (Rec: 02/07/23 11:13 TS [id number]) PT Summary Assessment and Plan Potential Rehabilitation Potential Good Summary Impairments Pain,ROM,Strength,Balance, Coordination,Sensation,Tone, Cognition,Bed Mobility, Transfers,Gait,Activity Tolerance Progress Towards Goals Progressing Toward Goals Assessment Summary Pt is progressing well with his mobility. He recalled 3/3 hip precautions prior to mobility. He demonstrated good carryover of sit to stand sequncing with LLE extended. He progressed his gait to ~200 ' SBA with FWW, pt demonstrates circling gait on LLE, continued even when provoided cues for more normal gait. He performed stairs x3 SBA with no buckling or LOB. PT is recommending return home with assist and outpatient PT . Goals Bed Mobility Goal Independent Transfer Goal Independent,Front Wheeled Walker Gait Goal Independent,Front Wheel Walker Gait Distance 200 Other Goals up/dpwn 2 steps 2 rails SBA Days to Meet Goals 5 Frequency of Treatment Frequency Of Treatment Twice a Day Treatment Plan Physical Therapy Treatment Plan Bed Mobility Training,Transfer Training,Gait Training, Therapeutic Exercise,Balance Retraining,Post Op Education, Discharge Planning,Hot or Cold Pack,Neuromuscular Re-ed, Coordination Retraining,Manual Therapy Precautions Posterior Hip Precautions No Hip Flexion > 90 degrees,No Hip Internal Rotation,No Hip Adduction Weight Bearing Status Weight Bearing Status Weight Bear as Tolerated Allowed Weight Bearing Amount (enter % LLE WBAT or #) (%) Recommendations To Nursing Amount of Assist Needed Standby Assistance Discharge Recommendations PT Discharge Recommendations Home with Assistance, Outpatient PT Transportation Needs at Discharge Private Vehicle
--- NOTE | 2023-02-07 10:53 | PC.NURSE ---
Pt is dressed and ready for discharge home with S.O. IV has been removed. Reviewed posterior hip precautions. Discussed d/c meds, time of last dose reviewed stroke education, encouraged fluid intake to prevent constipation or dehydration and recommended stool softeners as needed. Reminded Pt not to drive until cleared by his Ortho surgeon. Pt already has a follow up appointment scheduled. Pt and S.O. denied further questions and Pt will be taken out via w/c by RN [facility] to POV with S.O. and all belongings.
--- NOTE | 2023-02-07 11:49 | CM.DANOTE ---
DCP Assessment: Patient is a 52yo Male here following a planned left hip surgery with Dr. Trevizo on 02.06.23. PCP: Jocelynn Stinson Payer: carlo BANUELOS and self pay BANK REPRESENTATIVE reviewed EMR. From PT/OT notes, they recommend home with assistance and OP therapy. From nursing staff, likely no needs from this team. BANK REPRESENTATIVE entered room and introduced self and role. Patient was sitting up in the chair and appeared A/Ox4. Patient was accompanied by Mother Stacey ([phone]). Patient lives in [place] with girlfrienjake Jane ([phone]). Patient says Summer can help patient with his recovery. Patient reports not driving lately but hopes to be able to drive after recovering from this surgery. Patient has a FWW, cane, shower seat, and grab bars at his home. Patient has his follow up appointment scheduled. Plan: patient will d/c home with family assist. Family will transport with girlfriend in POV and follow up with OP PT. CM team will continue to follow as needed. LAURA Singh Discharge Planning/Care Management CM Discharge Assessment Start: 02/07/23 11:46 Freq: Status: Discharge Protocol: Document 02/07/23 11:46 SL (Rec: 02/07/23 11:48 [id number]) Discharge Planning Assessment Assigned Environmental Field Technician LAURA Devi DPOA/Assigned Designee Name Stacey Gavin (mother) Contact Information [phone] Advance Directives? No History Provided By Patient,Family Member,Medical Record Prior Living Arrangements House Household Members significant other Comment has not driven in awhile but hopes he will be able to now. Independent with ADL's Yes Is patient alert and oriented? Yes Caregiver for Another No DME Already Rented / Owned Bath Bench,FWW / Walker,Cane Comment shower seat and grab bars Patient/Family Preference OP PT Therapy Comment OP PT appointment already set up Barriers to Discharge No Discharge Plan Home Transportation Arrangement Lucinda carmona Whiteboard Updated in Patient Room with Yes name and ext. # of Environmental Field Technician Review Status In Process Next Review Type Continued Stay Review Pre-Anesthesia Assessment Start: 01/30/23 13:46 Freq: Status: Complete Protocol: Document 01/30/23 13:46 CAB (Rec: 01/30/23 14:36 CAB [id number]) Pre-Anesthesia Assessment Preferred Name Bello Patient Information Reviewed Via Phone Assessment Assessment Completed With Patient Diagnostic Results BMP/CMP,CBC,EKG,Urinalysis Comment Labs/EKG @ 12/25 Primary Care Provider Jocelynn Stinson Seen Specialist in Last 12 Months Yes Specialist Seen Orthopedist Primary Language [place] Fire Extinguisher Mechanic Required No Height 186.69 cm Weight 91.172 kg Body Mass Index (BMI) 26.2 Hearing Ability Normal Visual Assist None,Magnifying Glass Dentition Type Teeth, Natural Present Barriers to Learning None Hx Anesthesia Reactions Yes: Pt states he was awake during knee surgery, they gave me an epidural Hx Family Anesthesia Reaction No Hx Malignant Hyperthermia No Hx Blood Transfusions No Anesthesia Review Requested No Network Services Project Manager No alcohol intake current alcohol intake frequency a few times a week Smoking Status Former smoker how long ago did patient quit smoking Quit approx 10 years ago Substance Use Type does not use Pain Present Pain Reported Musculoskeletal Symptoms Abnormal Gait,Back Pain, Difficulty Walking,Joint Pain, Muscle Spasms History of Falling (Recent or History of No ) Patient is completely paralyzed or No completely immobile Mental Status Oriented to own ability Is patient on oxygen? No Does patient have AARON/SOB No Hx Sleep Apnea No Currently Taking a Beta [place] No Can You Climb a Flight of Stairs Without Yes SOB Hx Chest Pain No Hx SOB No Hx Syncope or Dizziness No Anti-Coagulant Therapy No Has a Sheet Metal Installer No Cardiac Testing No Hx Pacemaker/ICD No Pacemaker Rep Required? No Cardiac Clearance Received Not Applicable Diet Type At Home Regular Dysphagia No Gastrointestinal Symptoms None Urinary Catheter Present No Hx Urinary Self Catheterization No Diabetes No HgbA1C 5.4 Date 12/25/22 Hx Drug Resistant Organism No Presence of External or Internal Medical Yes: Left hip Devices Have you had any close contact with No someone diagnosed with COVID-19? Received a COVID vaccine? Yes Received all doses? No Marital Status Lives With significant other Current Living Arrangements House Number of Floors (Floors) One Floor Support System Significant Other Does the Patient Have Assistance After Yes Surgery Patient Discharge Plan Description Return Home Comment Pt advised possible same day surgery Feels Safe in Current Environment Yes Do you have thoughts of harming yourself None or others? Are you currently considering suicide? No Do you have a plan to hurt yourself or No Plan others? Do You Have Any Spiritual Beliefs That No May Affect Your HC Choices? Do You Have Any Cultural Practices That No May Affect Your HC Choices? Who Can We Speak to About Patient's Care Family, friends Identifying Code for Release of Patient Declines to issue Information Health Care Proxy/Next of Kin Lucinda Corral (S.O.) Health Care Proxy Emergency Contact Name Ibeth Gavin (Mom) Emergency Contact Advance Directives? No Power of Timber Surveyor No PAC Instructions Durable medical equipment, Medications to take/avoid, Nasal antibiotic,No ETOH/ petroleum product on skin DOS, NPO,Pre-surgical wash,Sensory aids,Sturdy shoes/comfortable clothes,Do not bring valuables and remove jewelry
== END 2023-02-07 11:11 | disposition home or self-care (01) | DRG 470 ==
PROVIDERS: Admitting Provider Orthopaedic Surgery; PCP Nurse Practitioner; Referring Provider Orthopaedic Surgery; Visit Provider Orthopaedic Surgery
PROC: 0SRB0JZ Replacement of Left Hip Joint with Synthetic Substitute, Open Approach (ICD-10-PCS; CPT 27130; principal; 2023-02-06 07:45)
DX: M93.002 Unspecified slipped upper femoral epiphysis (nontraumatic), left hip (principal); M16.12 Unilateral primary osteoarthritis, left hip; Z87.891 Personal history of nicotine dependence; Z20.822 Contact with and (suspected) exposure to COVID-19
CPT/HCPCS: 72170; 73502; 85014; 85018; 87070; 87075; 87205; 97116; 97162; 97165; 97530; 97535; C1776; C9290; J0171; J0690; J1170; J2405; J2704; J3010